=== PATIENT | female | born 2000 | race Caucasian/White ===

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

== ENCOUNTER 2022-11-23 13:43 | Emergency (ER) | payer MEDICAID ==
[2022-11-23] MEDS ORDERED: diphenhydrAMINE 25 MG Cap PO ONE (14:05)
[2022-11-23] MEDS ORDERED: LORazepam 2 MG/ML SDV IM ONE (14:51)
[2022-11-23] MEDS ORDERED: Sodium Chloride 0.9% 10 ML Syringe FLUSH PRN (15:51)
[2022-11-23] MEDS ORDERED: Lactated Ringers 1,000 ML IV ONE (15:51)
[2022-11-23 17:05] VITALS: BP 120/63; PULSE 115
== END 2022-11-23 17:38 | disposition home or self-care (01) ==
LOC: JP.ED 13:43
DX: N61.0 Mastitis without abscess (principal); T36.8X5A Adverse effect of other systemic antibiotics, initial encounter; R00.0 Tachycardia, unspecified; Z88.0 Allergy status to penicillin; Z86.16 Personal history of COVID-19; Z87.891 Personal history of nicotine dependence
CPT/HCPCS: 36415; 80048; 84443; 85025; 96360; 99283; A9270; J2060; J3490; J7120

== ENCOUNTER 2022-11-27 02:27 | Emergency (ER) | payer MEDICAID ==
[2022-11-27] MEDS ORDERED: Sodium Chloride 0.9% 10 ML Syringe FLUSH PRN (02:39)
[2022-11-27] MEDS ORDERED: Acetaminophen 500 MG Tab PO ONE (03:10)
[2022-11-27] MEDS ORDERED: Sodium Chloride 0.9% 1,000 ML IV ONE ×2 (03:11→06:45)
[2022-11-27] MEDS ORDERED: Cephalexin 250 MG Cap PO ONE (03:45)
[2022-11-27] MEDS ORDERED: Magnesium Oxide 400 MG Tab PO ONE (03:50)
[2022-11-27] MEDS ORDERED: diphenhydrAMINE 50 MG/ML SDV IVPUSH ONE (05:38)
[2022-11-27] MEDS ORDERED: Docusate Sodium 100 MG Cap PO PRN (05:49)
[2022-11-27] MEDS ORDERED: Morphine 2 MG/ML SYRINGE IVPUSH PRN (05:49)
[2022-11-27] MEDS ORDERED: Ondansetron 4 MG Tab.DIS PO PRN (05:49)
[2022-11-27] MEDS ORDERED: Bisacodyl 5 MG Tab PO PRN (05:49)
[2022-11-27] MEDS ORDERED: Magnesium Sulfate/Water 2 GM in Premix Bag 1 BAG IV ONE (05:49)
[2022-11-27] MEDS ORDERED: Sodium Chloride 0.9% 1,000 ML IV SCH (05:49)
[2022-11-27] MEDS ORDERED: Promethazine 6.25 MG in Sodium Chloride 0.9% 50 ML IV PRN (05:49)
[2022-11-27] MEDS ORDERED: oxyCODONE 5 MG Tab PO PRN (05:49)
[2022-11-27 05:55] LABS: CORONAVIRUS COVID-19 NAA NEGATIVE (NEGATIVE)
[2022-11-27 06:17] LABS: ESTIMATED GFR 92 mL/min (>60)
[2022-11-27] MEDS: Lactobacillus Rhamnosus GG (Probiotic) Cap PO SCH ×2 (08:39→21:43)
[2022-11-27] MEDS: Pantoprazole 40 MG Tab.CR PO SCH (08:39)
[2022-11-27] MEDS: Enoxaparin 40 MG/0.4 ML Syringe SUBCUT SCH (11:12)
[2022-11-27] MEDS: Clindamycin in 0.9 % Sod Chlor 300 MG in Premix Bag 1 BAG IV SCH ×4 (15:58→23:29)
[2022-11-27] MEDS ORDERED: cefTRIAXone 1 GM in Sodium Chloride 0.9% 50 ML IV SCH (17:00)
[2022-11-27] MEDS: Acetaminophen 325 MG Tab PO PRN (19:54)
[2022-11-28] MEDS: Acetaminophen 325 MG Tab PO PRN (01:13)
[2022-11-28 05:58] LABS: ESTIMATED GFR 125 mL/min (>60)
[2022-11-28] MEDS: Pantoprazole 40 MG Tab.CR PO SCH (07:16)
[2022-11-28] MEDS: Clindamycin in 0.9 % Sod Chlor 300 MG in Premix Bag 1 BAG IV SCH ×2 (07:16)
[2022-11-28] MEDS: Lactobacillus Rhamnosus GG (Probiotic) Cap PO SCH (07:59)
[2022-11-28] MEDS: Enoxaparin 40 MG/0.4 ML Syringe SUBCUT SCH (08:00)
[2022-11-28 11:53] VITALS: BP 120/77; PULSE 79
[2022-11-28] MEDS ORDERED: Clindamycin HCl 150 MG Cap PO SCH (14:00)
== END 2022-11-28 13:30 | disposition home or self-care (01) ==
LOC: JP.ED 02:27 → JP.MS 05:33
PROVIDERS: ADMIT Hospitalist; ATTEND Hospitalist
DX: R00.0 Tachycardia, unspecified (principal); N61.0 Mastitis without abscess; E83.42 Hypomagnesemia; Z88.0 Allergy status to penicillin; Z72.0 Tobacco use; Z20.822 Contact with and (suspected) exposure to COVID-19
CPT/HCPCS: 0241U; 36415; 76642; 80053; 81001; 81025; 83605; 83735; 84439; 84481; 85025; 85027; 85610; 85730; 86140; 87040; 87086; 93005; 96361; 96365; 96366; 96367; 96375; 96376; 99222; 99239; 99285; A9270; G0378; J1200; J3370; J3475; J3490; J7030; J7050

== ENCOUNTER 2023-02-09 14:56 | Emergency (ER) | payer MEDICAID ==
[2023-02-09 15:34] VITALS: BP 136/80
[2023-02-09 15:36] VITALS: PULSE 106
== END 2023-02-09 16:44 | disposition home or self-care (01) ==
LOC: JP.ED 14:56
DX: T78.1XXA Other adverse food reactions, not elsewhere classified, initial encounter (principal); K14.8 Other diseases of tongue; J45.909 Unspecified asthma, uncomplicated; Z86.16 Personal history of COVID-19; Z88.0 Allergy status to penicillin; Z88.2 Allergy status to sulfonamides; Z88.1 Allergy status to other antibiotic agents
CPT/HCPCS: 99282; 99283

== ENCOUNTER 2023-02-09 22:06 | Emergency (ER) | payer MEDICAID ==
[2023-02-09] MEDS ORDERED: diphenhydrAMINE 25 MG Cap PO ONE (22:26)
[2023-02-09] MEDS ORDERED: EPINEPHrine 1 MG/ML SDV IM ONE (22:58)
[2023-02-09] MEDS ORDERED: methylPREDNISolone Sodium Succinate 40 MG/1 ML SDV IM ONE (22:59)
[2023-02-10 00:31] VITALS: BP 131/74; PULSE 86
== END 2023-02-10 00:50 | disposition home or self-care (01) ==
LOC: JP.ED 22:06
DX: K14.8 Other diseases of tongue (principal); T78.1XXD Other adverse food reactions, not elsewhere classified, subsequent encounter; Z88.0 Allergy status to penicillin; Z88.2 Allergy status to sulfonamides; Z88.1 Allergy status to other antibiotic agents; J45.909 Unspecified asthma, uncomplicated; Z86.16 Personal history of COVID-19
CPT/HCPCS: 96372; 99282; A9270; J2920